=== PATIENT | male | born 1980 | race African-American/Black ===

== ENCOUNTER 2022-09-30 15:56 | Emergency (ER) | payer OTHER ==
[~2022-09-30] VITALS: Ht 180.3 cm; Wt 103.4 kg
[2022-09-30 16:00] VITALS: BP_SYST 125
[2022-09-30] MEDS ORDERED: DIPHTH,PERTUSS(ACELL),TET VAC 0.5 ML VIAL (Tdap) I.M. ONE (17:15)
[2022-09-30] MEDS ORDERED: cefTRIAXone 1 GM VIAL IM ONE (17:30)
[2022-09-30] MEDS ORDERED: SULFAMETHOXAZOLE/TRIMETHOPR DS 1 TABLET PO ONE (17:30)
[2022-09-30] MEDS ORDERED: CEPH-548 PO (19:10)
[2022-09-30] MEDS ORDERED: SULF1TAB48 PO (19:11)
[2022-09-30] MEDS ORDERED: HYDR-3927 PO (19:12)
[2022-09-30] MEDS ORDERED: IBUP-1971 PO (19:13)
[2022-09-30] MEDS ORDERED: IBUPROFEN 800 MG TABLET PO ONE (19:15)
[2022-09-30 20:06] VITALS: BP_SYST 127
[2022-09-30] MEDS ORDERED: METF-834 PO (20:43)
[2022-10-02] MEDS ORDERED: SULF1TAB48 PO (21:42)
[2022-10-02] MEDS ORDERED: CHLO118L TP (21:42)
== END 2022-10-01 01:45 | disposition home or self-care (01) ==
LOC: SED 15:56
DX: L02.214 Cutaneous abscess of groin (principal); R19.09 Other intra-abdominal and pelvic swelling, mass and lump; E11.9 Type 2 diabetes mellitus without complications; Z79.899 Other long term (current) drug therapy
CPT/HCPCS: 99284; 10060; 87070; 87075; 90715; 90471; 96372; J0696

== ENCOUNTER 2022-10-02 18:17 | Emergency (ER) | payer OTHER ==
[~2022-10-02] VITALS: Ht 180.3 cm; Wt 103.4 kg
[~2022-10-02 18:17] MED LIST: CEPH-548 PO; HYDR-3927 PO; IBUP-1971 PO; METF-834 PO; SULF1TAB48 PO
[2022-10-02 18:34] VITALS: BP_SYST 133
--- NOTE | 2022-10-02 18:37 | NUR ---
Patient triaged and placed in waiting room. VSS and patient appears in no acute distress at this time. Accompanied by self, awaiting available bed, and MD notified of need for MSE.
--- NOTE | 2022-10-02 20:20 | NUR ---
Patient placed in ER Chair 2 for evaluation. Instructed patient to notify ED staff for any changes in condition or worsening of symptoms. Patient verbalized understanding.
--- NOTE | 2022-10-02 20:32 | NUR ---
Dr. Cronin is at bedside examining the patient.
[2022-10-02] MEDS ORDERED: VANCOMYCIN HCL 1000 MG/VIAL IV ONE (20:44)
[2022-10-02] MEDS ORDERED: VANCOMYCIN HCL 1,000 MG in NS 250 ML IV ONE (20:45)
--- NOTE | 2022-10-02 21:18 | NUR ---
# 20 gauge angiocath placed to right antecubital. Use of asceptic technique. Opsite placed over site. Blood return noted. Blood for lab drawn from site. Flushed with 10 cc of normal saline. No evidence of infiltration noted. Patient tolerated well.
--- NOTE | 2022-10-02 21:31 | NUR ---
Web Operations Manager Dara sergio blood specimens and cultures.
[2022-10-02] MEDS ORDERED: CHLO118L TP (21:42)
[2022-10-02] MEDS ORDERED: SULF1TAB48 PO (21:42)
[2022-10-02 22:54] VITALS: BP_SYST 122
--- NOTE | 2022-10-02 22:55 | NUR ---
Patient given written and verbal discharge instructions and verbalizes understanding. ER MD discussed with patient the results and treatment provided. Patient in stable condition. ID arm band removed. IV catheter removed intact and dressing applied, no active bleeding. Rx of HIBICLENS AND BACTRIM given. Patient educated on pain management and to follow up with PMD. Pain Scale 0/10. Opportunity for questions provided and answered. Medication side effect fact sheet provided.
== END 2022-10-02 22:54 | disposition home or self-care (01) ==
LOC: SED 18:17
DX: L02.214 Cutaneous abscess of groin (principal); E11.9 Type 2 diabetes mellitus without complications; Z79.899 Other long term (current) drug therapy
CPT/HCPCS: 99284; 96365; 87040; 36415; J3370